=== PATIENT | female | born 1975 | race Two or more races ===

== ENCOUNTER 2023-07-01 16:06 | Emergency (ER) | payer MEDICAID ==
[~2023-07-01] VITALS: Ht 165.1 cm; Wt 96.1 kg
[2023-07-01 16:41] VITALS: BP 124/65; PULSE 66; RESP 17; TEMP 97.2; O2SAT 95
[2023-07-01] MEDS ORDERED: IBUP-1456 PO (20:11)
[2023-07-01] MEDS: KETOROLAC TROMETH 60MG/2ML VIAL IM ONE (20:23)
== END 2023-07-01 20:27 | disposition home or self-care (01) ==
LOC: ER 16:06
DX: S09.8XXA Other specified injuries of head, initial encounter (principal); W22.8XXA Striking against or struck by other objects, initial encounter; Y93.89 Activity, other specified; Y92.89 Other specified places as the place of occurrence of the external cause; Y99.8 Other external cause status
CPT/HCPCS: 70450; 70486; 96372; 99285; J1885